=== PATIENT | female | born 1955 | race Caucasian/White ===

== ENCOUNTER 2019-05-24 16:11 | Emergency (ER) | payer OTHER ==
[~2019-05-24] VITALS: Ht 182.9 cm; Wt 93.0 kg
[2019-05-24 16:12] VITALS: BP 136/79
[2019-05-24 16:36] LABS: ABSOLUTE NEUTROPHILS 5.6 thou/uL (1.4-8.2); BASOPHILS 0.9 % (0.0-2.0); EOSINOPHILS 2.1 % (0.0-3.0); HEMATOCRIT 38.1 % (37.0-47.0); HEMOGLOBIN 12.8 gm/dL (12.0-15.0); LYMPHOCYTES 24.1 % (24.0-44.0); MCH 29.9 pg (26.0-34.0); MCHC 33.6 g/dL (28.0-37.0); MONOCYTES 11.7 % (1.0-8.0); PLATELET COUNT 397 thou/uL (150-400); POLYS 61.2 % (36.0-66.0); RBC 4.28 mil/uL (4.20-5.00); RDW 13.9 % (10.5-14.5); WBC 9.1 thou/uL (4.0-11.0)
[2019-05-24 16:51] LABS: ANION GAP 10 mmol/L (7-16); BUN 16 mg/dL (7-18); CALCIUM 9.7 mg/dL (8.5-10.1); CHLORIDE 102 mmol/L (98-107); CO2 25 mmol/L (21-32); CREATININE 0.8 mg/dL (0.6-1.0); GLUCOSE 109 mg/dL (74-106); POTASSIUM 3.7 mmol/L (3.5-5.1); SODIUM 137 mmol/L (136-145)
[2019-05-24 16:56] LABS: ALBUMIN 4.2 g/dL (3.4-5.0); SGOT 30 U/L (15-37); SGPT 47 U/L (30-65); TOTAL BILIRUBIN 0.2 mg/dL (<0.1-1.0); TOTAL PROTEIN 9.4 g/dL (6.4-8.2); TROPONIN-I <0.06 ng/mL (<0.06)
--- NOTE | 2019-05-25 07:54 | EKG ---
[place] [address] [facility] [place] [address] ELECTROCARDIOGRAM REPORT Name: ARIEL EARL Room #: DEP Andrew#: [id number] Admission: 05/24/19 Attend Phys: Discharge: 05/24/19 Date of : 55 Report #: [id number] THIS REPORT FOR: //name// [facility] ED Test Date: 2019-05-24 Test Time: 16:14:02 Pat Name: ARIEL EARL Department: Room: Gender: F [employer]: MIRIAM : 1955 Requested By: Trinh Arce Order Number: [id number] MD: Christian Chester Measurements Intervals [place] Rate: 80 P: 79 CT: 132 QRS: 60 QRSD: 103 T: 161 QT: 371 QTc: 428 Interpretive Statements Sinus rhythm Borderline repolarization abnormality Baseline wander in lead(s) V6 No previous ECG available for comparison Electronically Signed On 05-25-2019 7:53:36 [employer] by Christian Chester [email or web address] <ELECTRONICALLY SIGNED> By: Christian Chester MD 05/25/19 0753 [id number] 161 Christian Chester MD /FARHEEN
== END 2019-05-24 20:03 | disposition home or self-care (01) ==
LOC: ER 16:11
PROVIDERS: Emergency Medicine
DX: R06.02 Shortness of breath (principal); R07.9 Chest pain, unspecified; R42 Dizziness and giddiness; R41.0 Disorientation, unspecified

== ENCOUNTER → 2019-05-26 | Outpatient (CLI) | payer BC, OTHER | LOC: NUC 07:29 | DX: Z53.9 Procedure and treatment not carried out, unspecified reason (principal) ==